=== PATIENT | female | born 1985 | race Caucasian/White ===

== ENCOUNTER → 2019-01-03 | Outpatient (CLI) | payer OTHER ==
[~2019-01-03] MED LIST: LYRICA50 M1 PO; MINIPRESS1 MG PO; NAPROSYN500 MG PO; PROVIGIL200 MG PO; REMERON SOLTAB45 MG PO; REXULTI1 MG PO; TIROSINT150 MCG PO; VITAMIN D5000 UNIT PO; XANAX0.25 MG PO; ZANAFLEX4 M2 PO; ZOLOFT100 MG PO
[2019-01-03 12:30] LABS: BILIRUBIN NEGATIVE (NEGATIVE); BLOOD NEGATIVE (NEGATIVE); CLARITY SL CLOUDY (CLEAR); COLOR YELLOW (YELLOW); GLUCOSE NEGATIVE (NEGATIVE); KETONE NEGATIVE (NEGATIVE); LEUKO ESTERASE NEGATIVE (NEGATIVE); NITRITE NEGATIVE (NEGATIVE); SPECIFIC GRAVITY <= 1.005 (1.005-1.030); UROBILINOGEN 0.2 E.U./dl (0.2-1.0)
[2019-01-03 12:43] LABS: BACTERIA TRACE; MUCOUS 1+
[2019-01-03 12:51] LABS: BASO % 0.3 % (0.0-1.0); EOS # 0.2 10*3/uL (0.0-0.4); EOS % 3.1 % (1.0-4.0); HEMATOCRIT 38.1 % (37.0-47.0); HEMOGLOBIN 12.3 g/dl (12.0-16.0); LYMPH # 1.5 10*3/uL (1.3-4.4); MEAN CELL VOLUME 89.4 fl (81.0-99.0); MEAN CORPUSCULAR HGB 28.9 pg (27.0-31.0); MEAN CORPUSCULAR HGB CONC 32.3 g/dl (33.0-37.0); MEAN PLATELET VOLUME 10.8 fl (9.6-12.3); MONO # 0.4 10*3/uL (0.1-1.0); MONO % 6.6 % (3.0-9.0); NEUT # 3.7 10*3/uL (2.3-7.9); NEUT % 64.7 % (47.0-73.0); PLATELET COUNT AUTOMATED 248 10*3/uL (130-400); RED BLOOD COUNT 4.26 10*6/uL (4.10-5.10); RED CELL DISTRI WIDTH 12.8 % (0-14.5); WHITE BLOOD COUNT 5.8 10*3/uL (4.8-10.8)
[2019-01-03 12:59] LABS: ALBUMIN 3.5 gm/dl (3.1-4.5); ALKALINE PHOSPHATASE 67 U/L (45-117); BILIRUBIN, DIRECT < 0.1 mg/dL (0.0-0.2); BUN 13 mg/dl (7-24); CHLORIDE 107 mmol/L (98-107); CHOLESTEROL 187 mg/dL (<200); HDL CHOLESTEROL 69 mg/dl (40-60); LDL CHOLESTEROL 106 mg/dL (9-159); SGOT/AST 11 IU/L (3-35); SGPT/ALT 33 U/L (12-78); SODIUM 140 mmol/L (136-145); THYROXINE (T4) TOTAL 3.7 ug/dl (4.8-13.9); TOTAL PROTEIN 6.7 gm/dL (6.4-8.2); TRIGLYCERIDES 61 mg/dl (<150); VLDL CHOLESTEROL 12 mg/dL (6-40)
[2019-01-03 13:04] LABS: THYROID STIM HORMONE (HS) 0.258 uIU/ml (0.358-4.75)
== END | disposition home or self-care (01) ==
LOC: LAB 11:43
PROVIDERS: Psychiatry & Neurology Neurology
DX: I10 Essential (primary) hypertension (principal); E55.9 Vitamin D deficiency, unspecified; E06.3 Autoimmune thyroiditis; G35 Multiple sclerosis; R53.82 Chronic fatigue, unspecified; Z79.899 Other long term (current) drug therapy

== ENCOUNTER → 2019-07-07 | Outpatient (CLI) | payer OTHER ==
[~2019-07-07] MED LIST changes: +ATIVAN1 MG PO; +ONE-DAILY MULT1 EACH PO; +POTASSIUM600 MG PO; +TOPAMAX100 M1 PO; +VITAMIN D31000 UNI1 PO; -VITAMIN D5000 UNIT PO; +Wellbutrin Sr100 MG PO
== END | disposition home or self-care (01) ==
LOC: LAB 09:04 → CARD 14:00
DX: R63.5 Abnormal weight gain (principal); R55 Syncope and collapse

== ENCOUNTER → 2019-07-21 | Outpatient (CLI) | payer OTHER ==
--- NOTE | ~2019-07-21 | ST ---
[place], [place] EXERCISE STRESS TEST REPORT NAME: MICHELE HOOKER UNIT #: [id number] ROOM: DOCTOR: LAURIE NYE [facility],J LUIS BIRTHDATE: [birth year] DOS: 07/21/2019 The patient received Lexiscan 0.4 mg for 10 seconds. Heart rate is 103. No ischemic change on the EKG. No complication noted. Isotope was injected. Myocardial perfusion scan to follow. No complication noted. J LUIS SULLIVAN MD CM:STRESS:EXERCISE STRESS TEST REPORT [id number] J LUSI SULLIVAN MD [facility]
--- NOTE | 2019-07-21 10:42 | NUR ---
INFORMED CONSENT OBTAINED FOR A LEXISCAN WITH DR. SULLIVAN. RESTING EKG, NSR WITH A HT RT OF 61 AND A BP OF 100/60. POX 98% VIA RA WITH CLEAR BREATH SOUNDS. COMPLETED ONE MINUTE OF A LEXISCAN PROTOCOL RECEIVING LEXISCAN 0.4 MG OVER 10 SECONDS. DEVELOPED AN "ODD" FEELING THAT WAS RELIEVED IN RECOVERY. HAD A PEAK HT RT OF 103, WITH A BP OF 98/52. LAST RECOVERY HT RT OF 87, WITH A BP OF 100/58. AWAITING NUCLEAR IMAGING IN STABLE CONDITION.
== END | disposition home or self-care (01) ==
LOC: CARD 00:51
DX: I35.0 Nonrheumatic aortic (valve) stenosis (principal); I10 Essential (primary) hypertension; I20.0 Unstable angina; R06.09 Other forms of dyspnea; J44.9 Chronic obstructive pulmonary disease, unspecified; K21.9 Gastro-esophageal reflux disease without esophagitis; F32.9 Major depressive disorder, single episode, unspecified; F17.200 Nicotine dependence, unspecified, uncomplicated

== ENCOUNTER 2024-11-23 11:50 | Emergency (ER) | payer OTHER ==
[~2024-11-23] VITALS: Wt 113.4 kg
[2024-11-23] MEDS ORDERED: AMOX-CLAV 875-1 EACH PO (13:41)
[2024-11-23] MEDS ORDERED: Amoxicillin/Clavulanate Pota 875 MG TAB PO ONE (13:45)
== END 2024-11-23 14:14 | disposition home or self-care (01) ==
LOC: ED 11:50
DX: B34.9 Viral infection, unspecified (principal); Z20.822 Contact with and (suspected) exposure to COVID-19; H66.92 Otitis media, unspecified, left ear; F41.9 Anxiety disorder, unspecified; F32.A Depression, unspecified; K21.9 Gastro-esophageal reflux disease without esophagitis; Z91.040 Latex allergy status; Z88.8 Allergy status to other drugs, medicaments and biological substances; Z98.890 Other specified postprocedural states

== ENCOUNTER 2025-01-04 19:05 | Emergency (ER) | payer OTHER ==
[~2025-01-04] VITALS: Ht 175.2 cm; Wt 117.0 kg
[~2025-01-04 19:05] MED LIST changes: +AMOX-CLAV 875-1 EACH PO
== END 2025-01-04 19:40 | disposition home or self-care (01) ==
LOC: ED 19:05
DX: T16.1XXA Foreign body in right ear, initial encounter (principal); F32.A Depression, unspecified; F41.9 Anxiety disorder, unspecified; K21.9 Gastro-esophageal reflux disease without esophagitis; Z79.2 Long term (current) use of antibiotics; Z88.8 Allergy status to other drugs, medicaments and biological substances; Z91.040 Latex allergy status; W44.8XXA Other foreign body entering into or through a natural orifice, initial encounter; Y93.89 Activity, other specified; Y92.89 Other specified places as the place of occurrence of the external cause; Y99.8 Other external cause status

== ENCOUNTER 2025-01-20 18:26 | Emergency (ER) | payer OTHER ==
[~2025-01-20] VITALS: Ht 172.7 cm; Wt 113.4 kg
[2025-01-20] MEDS ORDERED: AMOX-CLAV 875-1 EACH PO (18:48)
[2025-01-20] MEDS ORDERED: Amoxicillin/Clavulanate Pota 875 MG TAB PO ONE (18:50)
== END 2025-01-20 18:52 | disposition home or self-care (01) ==
LOC: ED 18:26
DX: J02.0 Streptococcal pharyngitis (principal); F32.A Depression, unspecified; F41.9 Anxiety disorder, unspecified; Z88.8 Allergy status to other drugs, medicaments and biological substances; Z91.040 Latex allergy status; Z79.899 Other long term (current) drug therapy; Z98.890 Other specified postprocedural states

== ENCOUNTER 2025-01-25 19:59 | Emergency (ER) | payer BC ==
[~2025-01-25] VITALS: Ht 175.2 cm; Wt 108.9 kg
[2025-01-25 20:43] LABS: BASO # 0.1 10*3/uL (0.0-0.1); BASO % 0.8 % (0.0-1.0); EOS # 0.4 10*3/uL (0.0-0.4); EOS % 4.7 % (1.0-4.0); HEMATOCRIT 39.7 % (37.0-47.0); MEAN CELL VOLUME 82.7 fl (81.0-99.0); MEAN CORPUSCULAR HGB 25.4 pg (27.0-31.0); MEAN CORPUSCULAR HGB CONC 30.7 g/dl (33.0-37.0); MEAN PLATELET VOLUME 9.7 fl (9.6-12.3); MONO # 0.6 10*3/uL (0.1-1.0); MONO % 7.7 % (3.0-9.0); NEUT # 3.5 10*3/uL (2.3-7.9); NEUT % 46.9 % (47.0-73.0); PLATELET COUNT AUTOMATED 401 10*3/uL (130-400); WHITE BLOOD COUNT 7.4 10*3/uL (4.8-10.8)
[2025-01-25 20:55] LABS: BILIRUBIN Negative (Negative); BLOOD 3+ (Negative); CLARITY Clear (Clear); COLOR Yellow (Yellow); GLUCOSE Negative (Negative); KETONE Negative (Negative); LEUKO ESTERASE Trace (Negative); NITRITE Negative (Negative); PH 6.5 (4.5-8.0); SPECIFIC GRAVITY <= 1.005 (1.001-1.030); UROBILINOGEN 0.2 E.U./dl (0.0-1.0)
[2025-01-25 21:06] LABS: ALKALINE PHOSPHATASE 107 U/L (46-116); BUN 17 mg/dl (9-23); CHLORIDE 101 mmol/L (98-107); POTASSIUM 4.1 mmol/L (3.4-5.1); SGPT/ALT 18 U/L (5-49); TOTAL PROTEIN 7.3 gm/dL (6.0-8.0)
[2025-01-25 21:08] LABS: BACTERIA 1+; RBC TNTC rbc/hpf (0-2)
== END 2025-01-25 23:50 | disposition home or self-care (01) ==
LOC: ED 19:59
PROVIDERS: Emergency Medicine
DX: O72.1 Other immediate postpartum hemorrhage (principal); F32.A Depression, unspecified; F41.9 Anxiety disorder, unspecified; K21.9 Gastro-esophageal reflux disease without esophagitis; Z79.899 Other long term (current) drug therapy; Z88.8 Allergy status to other drugs, medicaments and biological substances; Z91.040 Latex allergy status; Z98.890 Other specified postprocedural states

== ENCOUNTER → 2025-08-31 | Outpatient (CLI) | payer OTHER ==
[~2025-08-31] MED LIST changes: +CONCERTA27 M1 PO; +DOXYCYCLINE MO100 MG PO; +OXYCODONE-ACET1 EAC3 PO; +SEROQUEL200 MG PO
== END | disposition home or self-care (01) ==
LOC: WOUNDCARE 03:52
PROVIDERS: ATTEND Nurse Practitioner Family
DX: M72.6 Necrotizing fasciitis (principal); L03.311 Cellulitis of abdominal wall; R73.9 Hyperglycemia, unspecified; I10 Essential (primary) hypertension; G35.D Multiple sclerosis, unspecified; E06.3 Autoimmune thyroiditis; E55.9 Vitamin D deficiency, unspecified; F32.A Depression, unspecified; F41.9 Anxiety disorder, unspecified; Z87.891 Personal history of nicotine dependence; Z98.890 Other specified postprocedural states

== ENCOUNTER → 2025-09-04 | Outpatient (CLI) | payer OTHER | END | disposition home or self-care (01) | LOC: WOUNDCARE 01:52 | PROVIDERS: ATTEND Nurse Practitioner Family | DX: M72.6 Necrotizing fasciitis (principal); L03.311 Cellulitis of abdominal wall; R73.9 Hyperglycemia, unspecified; G35.D Multiple sclerosis, unspecified; E06.3 Autoimmune thyroiditis; I10 Essential (primary) hypertension; F32.A Depression, unspecified; F41.9 Anxiety disorder, unspecified; F90.9 Attention-deficit hyperactivity disorder, unspecified type; Z87.891 Personal history of nicotine dependence ==

== ENCOUNTER → 2025-09-11 | Outpatient (CLI) | payer OTHER | END | disposition home or self-care (01) | LOC: WOUNDCARE 02:04 | PROVIDERS: ATTEND Nurse Practitioner Family | DX: M72.6 Necrotizing fasciitis (principal); L03.311 Cellulitis of abdominal wall; R73.9 Hyperglycemia, unspecified; G35.D Multiple sclerosis, unspecified; E06.3 Autoimmune thyroiditis; I10 Essential (primary) hypertension; F32.A Depression, unspecified; F41.9 Anxiety disorder, unspecified; F90.9 Attention-deficit hyperactivity disorder, unspecified type; Z87.891 Personal history of nicotine dependence ==

== ENCOUNTER → 2025-09-14 | Outpatient (CLI) | payer OTHER | END | disposition home or self-care (01) | LOC: WOUNDCARE 09:37 | PROVIDERS: ATTEND Nurse Practitioner Family | DX: M72.6 Necrotizing fasciitis (principal); L03.311 Cellulitis of abdominal wall; R73.9 Hyperglycemia, unspecified; G35.D Multiple sclerosis, unspecified; E06.3 Autoimmune thyroiditis; Z87.891 Personal history of nicotine dependence; I10 Essential (primary) hypertension; F41.9 Anxiety disorder, unspecified; F32.A Depression, unspecified; F90.9 Attention-deficit hyperactivity disorder, unspecified type ==

== ENCOUNTER → 2025-09-18 | Outpatient (CLI) | payer OTHER | END | disposition home or self-care (01) | LOC: WOUNDCARE 02:53 | PROVIDERS: ATTEND Nurse Practitioner Family | DX: M72.6 Necrotizing fasciitis (principal); L03.311 Cellulitis of abdominal wall; R73.9 Hyperglycemia, unspecified; G35.D Multiple sclerosis, unspecified; E06.3 Autoimmune thyroiditis; I10 Essential (primary) hypertension; F32.A Depression, unspecified; F41.9 Anxiety disorder, unspecified; Z87.891 Personal history of nicotine dependence ==

== ENCOUNTER → 2025-09-20 | Outpatient (CLI) | payer OTHER | END | disposition home or self-care (01) | LOC: WOUNDCARE 02:55 | PROVIDERS: ATTEND Nurse Practitioner Family | DX: M72.6 Necrotizing fasciitis (principal); L03.311 Cellulitis of abdominal wall; R73.9 Hyperglycemia, unspecified; G35.D Multiple sclerosis, unspecified; E06.3 Autoimmune thyroiditis; I10 Essential (primary) hypertension; F32.A Depression, unspecified; Z87.891 Personal history of nicotine dependence; F41.9 Anxiety disorder, unspecified ==

== ENCOUNTER → 2025-09-25 | Outpatient (CLI) | payer OTHER | LOC: WOUNDCARE 00:58 | PROVIDERS: ATTEND Nurse Practitioner Family | DX: M72.6 Necrotizing fasciitis (principal); L03.311 Cellulitis of abdominal wall; R73.9 Hyperglycemia, unspecified; G35.D Multiple sclerosis, unspecified; E06.3 Autoimmune thyroiditis; I10 Essential (primary) hypertension; F32.A Depression, unspecified; F41.9 Anxiety disorder, unspecified; F90.9 Attention-deficit hyperactivity disorder, unspecified type; Z87.891 Personal history of nicotine dependence ==

== ENCOUNTER → 2025-09-28 | Outpatient (CLI) | payer OTHER | END | disposition home or self-care (01) | LOC: WOUNDCARE 02:48 | PROVIDERS: ATTEND Nurse Practitioner Family | DX: T81.31XD Disruption of external operation (surgical) wound, not elsewhere classified, subsequent encounter (principal); L98.492 Non-pressure chronic ulcer of skin of other sites with fat layer exposed; L03.311 Cellulitis of abdominal wall; M72.6 Necrotizing fasciitis; R73.9 Hyperglycemia, unspecified; G35.D Multiple sclerosis, unspecified; E06.3 Autoimmune thyroiditis; I10 Essential (primary) hypertension; F32.A Depression, unspecified; F41.9 Anxiety disorder, unspecified; F90.9 Attention-deficit hyperactivity disorder, unspecified type; Z87.891 Personal history of nicotine dependence; Y83.8 Other surgical procedures as the cause of abnormal reaction of the patient, or of later complication, without mention of misadventure at the time of the procedure ==

== ENCOUNTER → 2025-10-02 | Outpatient (CLI) | payer OTHER | END | disposition home or self-care (01) | LOC: WOUNDCARE 02:22 | PROVIDERS: ATTEND Nurse Practitioner Family | DX: T81.31XD Disruption of external operation (surgical) wound, not elsewhere classified, subsequent encounter (principal); M72.6 Necrotizing fasciitis; L98.492 Non-pressure chronic ulcer of skin of other sites with fat layer exposed; L03.311 Cellulitis of abdominal wall; R73.9 Hyperglycemia, unspecified; G35.D Multiple sclerosis, unspecified; I10 Essential (primary) hypertension; F32.A Depression, unspecified; F41.9 Anxiety disorder, unspecified; F90.9 Attention-deficit hyperactivity disorder, unspecified type; Z87.891 Personal history of nicotine dependence; Y83.8 Other surgical procedures as the cause of abnormal reaction of the patient, or of later complication, without mention of misadventure at the time of the procedure ==

== ENCOUNTER → 2025-10-04 | Outpatient (CLI) | payer OTHER | END | disposition home or self-care (01) | LOC: WOUNDCARE 01:40 | PROVIDERS: ATTEND Nurse Practitioner Family | DX: T81.31XD Disruption of external operation (surgical) wound, not elsewhere classified, subsequent encounter (principal); L98.492 Non-pressure chronic ulcer of skin of other sites with fat layer exposed; L03.311 Cellulitis of abdominal wall; M72.6 Necrotizing fasciitis; R73.9 Hyperglycemia, unspecified; G35.D Multiple sclerosis, unspecified; E06.3 Autoimmune thyroiditis; I10 Essential (primary) hypertension; F41.9 Anxiety disorder, unspecified; F90.9 Attention-deficit hyperactivity disorder, unspecified type; Z87.891 Personal history of nicotine dependence; Y83.8 Other surgical procedures as the cause of abnormal reaction of the patient, or of later complication, without mention of misadventure at the time of the procedure ==

== ENCOUNTER → 2025-10-09 | Outpatient (CLI) | payer OTHER | END | disposition home or self-care (01) | LOC: WOUNDCARE 05:10 | PROVIDERS: ATTEND Nurse Practitioner Family | DX: T81.31XD Disruption of external operation (surgical) wound, not elsewhere classified, subsequent encounter (principal); L98.492 Non-pressure chronic ulcer of skin of other sites with fat layer exposed; M72.6 Necrotizing fasciitis; L03.311 Cellulitis of abdominal wall; I10 Essential (primary) hypertension; R73.9 Hyperglycemia, unspecified; G35.D Multiple sclerosis, unspecified; E06.3 Autoimmune thyroiditis; E55.9 Vitamin D deficiency, unspecified; F32.A Depression, unspecified; F41.9 Anxiety disorder, unspecified; F90.9 Attention-deficit hyperactivity disorder, unspecified type; Z98.890 Other specified postprocedural states; Z87.891 Personal history of nicotine dependence; Z79.899 Other long term (current) drug therapy; Y83.8 Other surgical procedures as the cause of abnormal reaction of the patient, or of later complication, without mention of misadventure at the time of the procedure ==

== ENCOUNTER → 2025-10-12 | Outpatient (CLI) | payer OTHER | END | disposition home or self-care (01) | LOC: WOUNDCARE 03:56 | PROVIDERS: ATTEND Nurse Practitioner Family | DX: T81.31XD Disruption of external operation (surgical) wound, not elsewhere classified, subsequent encounter (principal); M72.6 Necrotizing fasciitis; L98.492 Non-pressure chronic ulcer of skin of other sites with fat layer exposed; L03.311 Cellulitis of abdominal wall; R73.9 Hyperglycemia, unspecified; G35.D Multiple sclerosis, unspecified; E06.3 Autoimmune thyroiditis; I10 Essential (primary) hypertension; F32.A Depression, unspecified; F41.9 Anxiety disorder, unspecified; F90.9 Attention-deficit hyperactivity disorder, unspecified type; Z87.891 Personal history of nicotine dependence; X58.XXXD Exposure to other specified factors, subsequent encounter ==

== ENCOUNTER → 2025-10-17 | Outpatient (CLI) | payer OTHER | END | disposition home or self-care (01) | LOC: WOUNDCARE 02:53 | PROVIDERS: ATTEND Nurse Practitioner Family | DX: T81.31XD Disruption of external operation (surgical) wound, not elsewhere classified, subsequent encounter (principal); M72.6 Necrotizing fasciitis; L98.492 Non-pressure chronic ulcer of skin of other sites with fat layer exposed; L03.311 Cellulitis of abdominal wall; R73.9 Hyperglycemia, unspecified; G35.D Multiple sclerosis, unspecified; E06.3 Autoimmune thyroiditis; I10 Essential (primary) hypertension; F41.9 Anxiety disorder, unspecified; F90.9 Attention-deficit hyperactivity disorder, unspecified type; F32.A Depression, unspecified; Z87.891 Personal history of nicotine dependence; Y83.8 Other surgical procedures as the cause of abnormal reaction of the patient, or of later complication, without mention of misadventure at the time of the procedure ==

== ENCOUNTER 2025-10-20 10:22 | Emergency (ER) | payer OTHER ==
[2025-10-20 11:03] LABS: BASO # 0.0 10*3/uL (0.0-0.1); BASO % 0.2 % (0.0-1.0); EOS # 0.2 10*3/uL (0.0-0.4); EOS % 3.3 % (1.0-4.0); MEAN CELL VOLUME 83.5 fl (81.0-99.0); MEAN CORPUSCULAR HGB 26.8 pg (27.0-31.0); MEAN PLATELET VOLUME 9.8 fl (9.6-12.3); MONO # 0.3 10*3/uL (0.1-1.0); MONO % 5.1 % (3.0-9.0); NEUT # 3.4 10*3/uL (2.3-7.9); NEUT % 59.0 % (47.0-73.0); NUCLEATED RED BLOOD CELL 0.0 % (0.0-0.0); NUCLEATED RED BLOOD CELL 0.0 10*3/uL (0.0-0.0); PLATELET COUNT AUTOMATED 281 10*3/uL (130-400); RED CELL DISTRI WIDTH 13.3 % (0-14.5)
[2025-10-20 11:24] LABS: BUN 12 mg/dl (9-23)
[2025-10-20] MEDS ORDERED: DAKIN'S473 ML T (11:47)
[2025-10-20] MEDS ORDERED: Sodium Hypochlorite 0.125% (1/4 STRENGTH DAKIN'S) 480 ML SOL T ONE (11:50)
== END 2025-10-20 12:17 | disposition home or self-care (01) ==
LOC: ED 10:22
PROVIDERS: Nurse Practitioner Family
DX: S31.109A Unspecified open wound of abdominal wall, unspecified quadrant without penetration into peritoneal cavity, initial encounter (principal); F41.9 Anxiety disorder, unspecified; F32.A Depression, unspecified; K21.9 Gastro-esophageal reflux disease without esophagitis; Z91.040 Latex allergy status; Z88.8 Allergy status to other drugs, medicaments and biological substances; Z98.890 Other specified postprocedural states; Z87.891 Personal history of nicotine dependence; X58.XXXA Exposure to other specified factors, initial encounter; Y93.89 Activity, other specified; Y92.89 Other specified places as the place of occurrence of the external cause; Y99.8 Other external cause status

== ENCOUNTER → 2025-10-23 | Outpatient (CLI) | payer OTHER ==
[~2025-10-23] MED LIST changes: +DAKIN'S473 ML T
== END | disposition home or self-care (01) ==
LOC: WOUNDCARE 08:52
PROVIDERS: ATTEND Nurse Practitioner Family
DX: T81.31XD Disruption of external operation (surgical) wound, not elsewhere classified, subsequent encounter (principal); E11.622 Type 2 diabetes mellitus with other skin ulcer; L98.492 Non-pressure chronic ulcer of skin of other sites with fat layer exposed; M72.6 Necrotizing fasciitis; L03.311 Cellulitis of abdominal wall; E11.65 Type 2 diabetes mellitus with hyperglycemia; G35.D Multiple sclerosis, unspecified; E06.3 Autoimmune thyroiditis; I10 Essential (primary) hypertension; F41.9 Anxiety disorder, unspecified; F32.A Depression, unspecified; Z87.891 Personal history of nicotine dependence; Y83.8 Other surgical procedures as the cause of abnormal reaction of the patient, or of later complication, without mention of misadventure at the time of the procedure

== ENCOUNTER → 2025-10-25 | Outpatient (CLI) | payer OTHER | LOC: WOUNDCARE 02:58 | PROVIDERS: ATTEND Nurse Practitioner Family | DX: T81.31XD Disruption of external operation (surgical) wound, not elsewhere classified, subsequent encounter (principal); M72.6 Necrotizing fasciitis; L98.492 Non-pressure chronic ulcer of skin of other sites with fat layer exposed; L03.311 Cellulitis of abdominal wall; R73.9 Hyperglycemia, unspecified; G35.D Multiple sclerosis, unspecified; E06.3 Autoimmune thyroiditis; I10 Essential (primary) hypertension; F32.A Depression, unspecified; F41.9 Anxiety disorder, unspecified; Z87.891 Personal history of nicotine dependence; Y83.8 Other surgical procedures as the cause of abnormal reaction of the patient, or of later complication, without mention of misadventure at the time of the procedure ==